=== PATIENT | male | born 1960 | race Caucasian/White ===

== ENCOUNTER 2020-12-15 09:55 | Outpatient (CLI) | payer BC ==
[2020-12-15 10:47] LABS: #Eosinphils 0.3 10x3/uL (0.0-0.5); #Monocytes 0.8 10x3/uL (0.0-1.1); #Neutrophils 4.9 10x3/uL (1.5-8.4); %Basophils 0.4 % (0.0-2.0); %Eosinophils 4.5 % (0.0-6.0); %Lymphocytes 16.8 % (18.0-47.0); %Monocytes 10.7 % (0.0-10.0); %Neutrophils 67.3 % (40.0-75.0); Hemoglobin 13.5 g/dL (13.5-17.5); Mean Corpuscular HGB CONC 34.6 g/dL (32.0-36.0); Mean Corpuscular Hemoglobin 30.8 pg (27.0-33.0); Mean Platelet Volume 9.2 fl (7.4-10.4); Platelet Count 238 10x3/uL (150-450); RBC Distribution Width 12.9 % (11.5-14.5); Red Blood Cell (RBC) Count 4.38 10x6/uL (4.32-5.72); White Blood Cell (WBC) Count 7.3 10x3/uL (3.5-10.5)
[2020-12-15 11:00] LABS: Anion Gap 12 mmol/L (10-20); BUN (Urea Nitrogen) 11 mg/dL (8.4-25.7); Calc. Creatinine Clearance 0 mL/min (70-130); Calcium 9.3 mg/dL (7.8-10.44); Carbon Dioxide 25 mmol/L (22-29); Chloride 98 mmol/L (98-107); Glucose 110 mg/dL (70-105); Potassium 4.3 mmol/L (3.5-5.1); Sodium 131 mmol/L (136-145)
== END 2020-12-15 09:56 | disposition home or self-care (01) ==
LOC: LABBT 09:55
PROVIDERS: ATTEND Specialist
DX: Z01.818 Encounter for other preprocedural examination (principal); K40.90 Unilateral inguinal hernia, without obstruction or gangrene, not specified as recurrent
CPT/HCPCS: 80048; 85025; 93005; 93010

== ENCOUNTER 2020-12-18 05:53 | Day surgery (SDC) | payer BC ==
[2020-12-17 11:06] VITALS: BMI 22.0
[2020-12-18] MEDS ORDERED: Ketorolac Tromethamine 30 MG/ML VIAL ONE (06:12)
[2020-12-18] MEDS ORDERED: Acetaminophen 500 MG TAB ONE (06:12)
[2020-12-18] MEDS ORDERED: Bupivacaine 0.25% HCL 30 ML VIAL ONE (06:50)
[2020-12-18] MEDS ORDERED: Lidocaine 1% w/Epinephrine 1:100K 20 ML VIAL ONE (06:50)
[2020-12-18] MEDS ORDERED: Fentanyl 100 MCG/2 ML VIAL ONE ×3 (07:06→09:54)
[2020-12-18] MEDS ORDERED: Lidocaine 1% PF 5 ML VIAL ONE (07:35)
[2020-12-18] MEDS ORDERED: Ondansetron PF 4 MG/2 ML Vial ONE (07:35)
[2020-12-18] MEDS ORDERED: PHENYLEPHRINE-NS 100 MCG/ML 10 ML SYRINGE ONE (07:35)
[2020-12-18] MEDS ORDERED: PROPOFOL 200 MG/20 ML VIAL ONE (07:35)
[2020-12-18] MEDS ORDERED: Rocuronium Bromide 10 MG/ML (10ML VIAL) ONE (07:35)
[2020-12-18] MEDS ORDERED: Glycopyrrolate 0.2 MG/ML 5 ML SYRINGE ONE (07:35)
[2020-12-18] MEDS ORDERED: ePHEDrine Sulfate 50 MG/10 ML VIAL ONE (07:35)
[2020-12-18] MEDS ORDERED: Tamsulosin HCl 0.4 MG CAP ONE (11:40)
== END 2020-12-18 13:38 | disposition home or self-care (01) ==
LOC: SDC 05:53
PROVIDERS: ATTEND Specialist
PROC: 0YU54JZ Supplement Right Inguinal Region with Synthetic Substitute, Percutaneous Endoscopic Approach (ICD-10-PCS; principal; 2020-12-18)
DX: K40.90 Unilateral inguinal hernia, without obstruction or gangrene, not specified as recurrent (principal); K66.0 Peritoneal adhesions (postprocedural) (postinfection); I11.0 Hypertensive heart disease with heart failure; I50.9 Heart failure, unspecified; E78.5 Hyperlipidemia, unspecified; I25.10 Atherosclerotic heart disease of native coronary artery without angina pectoris; Z95.5 Presence of coronary angioplasty implant and graft; Z79.899 Other long term (current) drug therapy; Z87.891 Personal history of nicotine dependence
CPT/HCPCS: C1781; J0690; J1885; J2405; J2704; J3010; S0020

== ENCOUNTER → 2022-06-15 | Day surgery (SDC) | payer BC ==
[2022-06-14 08:52] VITALS: BMI 23.1
[~2022-06-15] MED LIST: Dexamethasone 20 MG/5 ML VIAL ONE; Glycopyrrolate 0.2 MG/ML 5 ML SYRINGE ONE; HYDROmorphone 0.5 MG/0.5 ML SYRINGE ONE; Heparin 10,000 UNITS/ 10 ML VIAL ONE; Heparin 25,000 units/D5W 500 ML ONE; NEOSTIGMINE 3 MG/3 ML SYR 3 MG/3 ML SYRINGE ONE; Ondansetron PF 4 MG/2 ML Vial ONE; PHENYLEPHRINE-NS 100 MCG/ML 10 ML SYRINGE ONE; PROPOFOL 200 MG/20 ML VIAL ONE; Protamine Sulfate 50 MG/5 ML VIAL ONE; Rocuronium Bromide 10 MG/ML (10ML VIAL) ONE
== END | disposition home or self-care (01) ==
LOC: SDC 08:53
PROVIDERS: ATTEND Internal Medicine Cardiovascular Disease
PROC: 4A023FZ Measurement of Cardiac Rhythm, Percutaneous Approach (ICD-10-PCS; principal; 2022-06-15)
PROC: B246ZZ4 Ultrasonography of Right and Left Heart, Transesophageal (ICD-10-PCS; principal; 2022-06-15)
PROC: 02K83ZZ Map Conduction Mechanism, Percutaneous Approach (ICD-10-PCS; principal; 2022-06-15)
PROC: 02583ZZ Destruction of Conduction Mechanism, Percutaneous Approach (ICD-10-PCS; principal; 2022-06-15)
PROC: 4A0234Z Measurement of Cardiac Electrical Activity, Percutaneous Approach (ICD-10-PCS; principal; 2022-06-15)
DX: I48.19 Other persistent atrial fibrillation (principal); I48.3 Typical atrial flutter; I51.7 Cardiomegaly; I35.0 Nonrheumatic aortic (valve) stenosis; Z79.01 Long term (current) use of anticoagulants; Z79.899 Other long term (current) drug therapy; Z95.5 Presence of coronary angioplasty implant and graft
CPT/HCPCS: 85347; 93005; 93312; 93655; 93656; C1731; C1732; C1759; C1760; C1769; C1894; C2630; J1100; J1170; J1644; J2405; J2704; J2720

== ENCOUNTER 2023-03-09 07:36 | Outpatient (CLI) | payer BC | END 2023-03-09 07:37 | disposition home or self-care (01) | LOC: BICMAMMO 07:36 | PROVIDERS: ATTEND Internal Medicine | DX: N64.4 Mastodynia (principal) | CPT/HCPCS: 77066; G0279 ==